=== PATIENT | female | born 1980 | race Caucasian/White ===

== ENCOUNTER 2017-06-22 21:40 | Emergency (ER) | payer SELFPAY ==
[~2017-06-22 21:40] MED LIST: BACT800T5 PO; CEPH500T PO; CLIN150 PO
[2017-06-22 21:46] VITALS: BP_SYST 231; BP_SYST 235; BP_DIAS 119; BP_DIAS 126; PULSE 97; RESP 16; TEMP 99.1
[2017-06-22 22:15] LABS: AUTOMATED NEUTROPHIL # 7.1 TH/MM3 (1.8-7.7); BASOPHIL % 0.4 % (0.0-2.0); EOSINOPHIL # 0.3 TH/MM3 (0-0.4); EOSINOPHIL % 2.4 % (0.0-4.0); HEMATOCRIT 40.7 % (35.0-46.0); HEMO FLAGS DIFF FINAL; LYMPH % 27.6 % (9.0-44.0); MEAN CORPUSCULAR HEMOGLOBIN 27.6 PG (27.0-34.0); MEAN CORPUSCULAR HGB CONC 33.7 % (32.0-36.0); MONO % 4.4 % (0.0-8.0); NEUT % 65.2 % (16.0-70.0); PLATELET COUNT 200 TH/MM3 (150-450); RED BLOOD COUNT 4.96 MIL/MM3 (4.00-5.30); RED CELL DISTRIBUTION WIDTH 14.4 % (11.6-17.2); WHITE BLOOD COUNT 10.9 TH/MM3 (4.0-11.0)
--- NOTE | 2017-06-22 22:55 | PD ---
HPI Chief Complaint: Hypertension Time Seen by Provider: 22:41 Travel History International Travel<30 days: No Contact w/Intl Traveler<30days: No Traveled to known affect area: No History of Present Illness HPI 37-year-old female that presents to the ED for evaluation of congestion. Patient has a history of congestion for the past 2 weeks she's been taking over- the-counter remedies with some relief. She is also been taking a medication that she requires a license to get which I believe is Sudafed. She states that his been helping. Per patient she came today because she continues to have the congestion and sinus pressure. She denies any cough. She states having runny nose. No fevers chills or sweats. No cough or chest pain. No shortness of breath. No headache. She was noted by triage nurse to have a elevated blood pressure in the 200s. Patient herself states that she is to be on blood pressure medications but has not taken any for about a year. Per patient she's not taking them because she no longer follows with the PCP. She denies any other medical symptoms. She does not know what she used to be on this for before. PFSH Past Medical History Cardiovascular Problems: Yes (HTN) Diminished Hearing: No Genitourinary: No Hypertension: Yes (SUPPOSED TO TAKE MEDS/ RAN OUT) Musculoskeletal: No Neurologic: No Reproductive: Yes (yeast infections) Respiratory: No : 1 Para: 1 Miscarriage: 0 : 0 Social History Alcohol Use: Yes (rare) Tobacco Use: Yes (1/2 PPD) Substance Use: Yes (marijuana at times) Allergies-Medications (Allergen,Severity, Reaction): Coded Allergies: No Known Allergies (Verified , 04/04/14) Reported Meds & Prescriptions Reported Meds & Active Scripts Active Cephalexin 500 Mg Tab 500 Mg PO Q6H 10 Days Cleocin (Clindamycin HCl) 150 Mg Cap 300 Mg PO Q6 10 Days Bactrim DS (Sulfamethoxazole-Trimethoprim DS) 1 Tab Tab 1 Tab PO BID 10 Days Review of Systems Except as stated in HPI: all other systems reviewed are Neg Physical Exam Narrative GENERAL: Well-nourished, well-developed patient in no apparent distress. SKIN: Warm and dry. HEAD: Atraumatic. Normocephalic. EYES: Pupils equal and round reactive to light and accommodation. No scleral icterus. No injection or drainage. ENT: No nasal bleeding or discharge. Mucous membranes pink and moist. TMs are clear with no sign of infection or perforation. No mastoid tenderness. Ear canals are intact bilaterally. No lymphadenopathy. Nostril mucosa is red and moist with clear mucus noted. No sinus tenderness to palpation noted. Tonsils are not enlarged or swollen. No ulvua Deviation. Tongue is midline. NECK: Trachea midline. No JVD. No meningeal signs noted CARDIOVASCULAR: Regular rate and rhythm. No murmurs, S3, S4. RESPIRATORY: No accessory muscle use. Clear to auscultation. Breath sounds equal bilaterally. GASTROINTESTINAL: Abdomen soft, non-tender, nondistended. Hepatic and splenic margins not palpable. MUSCULOSKELETAL: Extremities without clubbing, cyanosis, or edema. No obvious deformities. Full range of motion of the upper and lower extremities bilaterally. 2+ pulses bilaterally. NEUROLOGICAL: Awake and alert. No obvious cranial nerve deficits. Motor grossly within normal limits. Five out of 5 muscle strength in the arms and legs. Normal speech. PSYCHIATRIC: Appropriate mood and affect; insight and judgment normal. Data Data Last Documented VS Vital Signs Date Time Temp Pulse Resp B/P (MAP) Pulse Ox O2 Delivery O2 Flow Rate FiO2 06/22/17 21:46 99.1 97 16 235/119 (157) 231/126 (161) Orders Orders Complete Blood Count With Diff (06/22/17 21:56) Basic Metabolic Panel (Bmp) (06/22/17 21:56) Electrocardiogram (06/22/17 ) Hydralazine Inj (Apresoline Inj) (06/22/17 23:00) Ed Urine Pregnancytest Poc (06/22/17 22:47) Troponin I (06/22/17 22:49) Labs Laboratory Tests Test 06/22/17 22:05 White Blood Count 10.9 TH/MM3 Red Blood Count 4.96 MIL/MM3 Hemoglobin 13.7 GM/DL Hematocrit 40.7 % Mean Corpuscular Volume 82.0 FL Mean Corpuscular Hemoglobin 27.6 PG Mean Corpuscular Hemoglobin Concent 33.7 % Red Cell Distribution Width 14.4 % Platelet Count 200 TH/MM3 Mean Platelet Volume 8.4 FL Neutrophils (%) (Auto) 65.2 % Lymphocytes (%) (Auto) 27.6 % Monocytes (%) (Auto) 4.4 % Eosinophils (%) (Auto) 2.4 % Basophils (%) (Auto) 0.4 % Neutrophils # (Auto) 7.1 TH/MM3 Lymphocytes # (Auto) 3.0 TH/MM3 Monocytes # (Auto) 0.5 TH/MM3 Eosinophils # (Auto) 0.3 TH/MM3 Basophils # (Auto) 0.0 TH/MM3 CBC Comment DIFF FINAL Differential Comment MDM Medical Decision Making Medical Screen Exam Complete: Yes Emergency Medical Condition: Yes Medical Record Reviewed: Yes Differential Diagnosis Hypertension versus hypertensive urgency versus hypertensive emergency versus sinusitis versus congestion versus URI versus otitis media with otitis externa Narrative Course 37-year-old female that presents to the ED for evaluation of sinus congestion. Patient was properly examined and was found to have signs and symptoms which appear to be consistent with sinusitis. Patient has been taking decongestants which I believe is likely Sudafed. She does have a history of hypertension before and has a family history of hypertension and is to be medications but has not taken any for a year. She has no chest pain or any other symptoms or signs of acute organ injury. Her blood pressure was rechecked on the room and it was 260 systolic. Patient will be given IV hydralazine. EKG was ordered. Labs were ordered. Case will be signed out to my attending pending disposition. Oskar Sanchez Jun 22, 2017 22:55
[2017-06-22] MEDS ORDERED: hydrALAZINE HCL 20 MG/ML VIAL IV PUSH ONE (23:00)
[2017-06-22 23:11] LABS: BICARBONATE 29.5 MEQ/L (21.0-32.0); POTASSIUM 3.7 MEQ/L (3.5-5.1)
[2017-06-22 23:12] VITALS: BP 220/101; PULSE 90; RESP 20; O2SAT 99
[2017-06-22 23:51] VITALS: BP 187/90; PULSE 87; RESP 18; O2SAT 99
[2017-06-22] MEDS ORDERED: CIPR-9 PO (23:57)
[2017-06-22] MEDS ORDERED: AMLO5 PO (23:57)
[2017-06-22] MEDS ORDERED: GUAI600T11 PO (23:57)
--- NOTE | 2017-06-23 00:01 | PD ---
Physical Exam Narrative GENERAL: SKIN: Warm and dry. HEAD: Atraumatic. Normocephalic. L...MILD TTPERCUSSION TO FRONTAL/MAXILLARY SINUS EYES: Pupils equal and round. No scleral icterus. No injection or drainage. ENT: No nasal bleeding or discharge. Mucous membranes pink and moist. NECK: Trachea midline. No JVD. CARDIOVASCULAR: Regular rate and rhythm. RESPIRATORY: No accessory muscle use. Clear to auscultation. Breath sounds equal bilaterally. GASTROINTESTINAL: Abdomen soft, non-tender, nondistended. MUSCULOSKELETAL: Extremities without clubbing, cyanosis, or edema. No obvious deformities. NEUROLOGICAL: Awake and alert. No obvious cranial nerve deficits. Motor grossly within normal limits. Five out of 5 muscle strength in the arms and legs. Normal speech. PSYCHIATRIC: Appropriate mood and affect; insight and judgment normal. Data Data Last Documented VS Vital Signs Date Time Temp Pulse Resp B/P (MAP) Pulse Ox O2 Delivery O2 Flow Rate FiO2 06/22/17 23:51 87 18 187/90 (122) 99 Room Air 06/22/17 21:46 99.1 Orders Orders Complete Blood Count With Diff (06/22/17 21:56) Basic Metabolic Panel (Bmp) (06/22/17 21:56) Electrocardiogram (06/22/17 ) Hydralazine Inj (Apresoline Inj) (06/22/17 23:00) Ed Urine Pregnancytest Poc (06/22/17 22:47) Troponin I (06/22/17 22:49) Labs Laboratory Tests Test 06/22/17 22:05 06/22/17 23:00 White Blood Count 10.9 TH/MM3 Red Blood Count 4.96 MIL/MM3 Hemoglobin 13.7 GM/DL Hematocrit 40.7 % Mean Corpuscular Volume 82.0 FL Mean Corpuscular Hemoglobin 27.6 PG Mean Corpuscular Hemoglobin Concent 33.7 % Red Cell Distribution Width 14.4 % Platelet Count 200 TH/MM3 Mean Platelet Volume 8.4 FL Neutrophils (%) (Auto) 65.2 % Lymphocytes (%) (Auto) 27.6 % Monocytes (%) (Auto) 4.4 % Eosinophils (%) (Auto) 2.4 % Basophils (%) (Auto) 0.4 % Neutrophils # (Auto) 7.1 TH/MM3 Lymphocytes # (Auto) 3.0 TH/MM3 Monocytes # (Auto) 0.5 TH/MM3 Eosinophils # (Auto) 0.3 TH/MM3 Basophils # (Auto) 0.0 TH/MM3 CBC Comment DIFF FINAL Differential Comment Blood Urea Nitrogen 11 MG/DL Creatinine 0.95 MG/DL Random Glucose 113 MG/DL Calcium Level 8.6 MG/DL Sodium Level 140 MEQ/L Potassium Level 3.7 MEQ/L Chloride Level 104 MEQ/L Carbon Dioxide Level 29.5 MEQ/L Anion Gap 7 MEQ/L Estimat Glomerular Filtration Rate 67 ML/MIN Troponin I LESS THAN 0.02 NG/ML [facility] Medical Record Reviewed: Yes Supervised Visit with [facility]: No Narrative Course FROM SBP IN 260'S DOWN TO 180'S WITH HYDRALAZINE, WILL WRITE PATIENT FOR [facility] TO START AND TO FOLLOWUP WITH [facility]. NO E/O RENAL FAILURE. Diagnosis Primary Impression: SINUSITIS Additional Impression: ACCELERATED HYPERTENSION Referrals: [facility] FOR FURTHER MEDICAL CARE Additional Instruction: AVOID TAKING SUDAFED OR ANY OTHER DECONGESTANTS, BECAUSE THEY CAN INCREASE YOUR BLOOD PRESSURE EVEN MORE. Scripts Amlodipine (Norvasc) 5 Mg Tab 5 MG PO DAILY for Blood Pressure Management, #30 TAB 1 Refill Prov: Kevin Nur MD 06/22/17 Guaifenesin ER (Mucus Relief ER) 600 Mg Tab 600 MG PO BID Y for CHEST CONGESTION AND/OR COUGH for 7 Days, #14 TAB 0 Refills Prov: Kevin Nur MD 06/22/17 Ciprofloxacin (Cipro) 500 Mg Tab 500 MG PO BID for Infection for 10 Days, #20 TAB 0 Refills Prov: Kevin Nur MD 06/22/17 Disposition: 01 DISCHARGE HOME Condition: Stable Kevin Nur MD Jun 23, 2017 00:01
[2017-06-23] MEDS ORDERED: amLODIPine BESYLATE 5 MG TAB PO ONE (00:15)
[2017-06-23 00:59] VITALS: BP 199/91
--- NOTE | 2017-06-23 09:38 | EKG ---
Date Performed: 06/22/2017 Time Performed: 23:09:32 PTAGE: 37 years EKG: Sinus rhythm LEFT VENTRICULAR HYPERTROPHY AND ST-T CHANGE ABNORMAL ECG PREVIOUS TRACING : 12/29/2007 13.47 DOCTOR: Luis Valente Interpretating Date/Time 06/23/2017 09:34:11
== END 2017-06-23 01:28 | disposition home or self-care (01) ==
LOC: NEPC 21:40
DX: I10 Essential (primary) hypertension (principal); J01.90 Acute sinusitis, unspecified
CPT/HCPCS: 80048; 84484; 84703; 85025; 93005; 99284; J0360

== ENCOUNTER 2017-11-22 09:26 | Emergency (ER) | payer MEDICAID ==
[2017-11-22] VITALS (9 sets, daily range): BP systolic 136–255; BP diastolic 73–130; PULSE 80–84; RESP 16; TEMP 98.1; O2SAT 100
[~2017-11-22] VITALS: Ht 165.1 cm; Wt 80.0 kg
[~2017-11-22 09:26] MED LIST changes: +AMLO5 PO; -BACT800T5 PO; -CEPH500T PO; +CIPR-9 PO; -CLIN150 PO; +GUAI600T11 PO
[2017-11-22] MEDS ORDERED: LABETALOL HCL 100 MG/20 ML VIAL IV PUSH ONE ×2 (09:45→12:15)
--- NOTE | 2017-11-22 09:50 | PD ---
HPI Chief Complaint: Hypertension Time Seen by Provider: 09:33 Travel History International Travel<30 days: No Contact w/Intl Traveler<30days: No Traveled to known affect area: No History of Present Illness HPI Patient is a 37-year-old female presenting to the emergency department for evaluation of elevated blood pressure. Patient reports that she recently found out she was . Her last menstrual cycle was on October 25. She reports a history of hypertension but has not been on medication several months. This is her second , she has no history of preeclampsia. She reports a dull headache, her pain is a 3 out of 10. She denies any visual changes, photophobia. Patient denies any chest pain, shortness of breath, abdominal pain , vaginal bleeding, vaginal discharge. Previous was uneventful. [facility] Past Medical History Hypertension: Yes ?: LMP: 10/25/17 : 1 Para: 1 Miscarriage: 0 : 0 Past Surgical History Oral Surgery: Yes (TOOTH ABSCESS DRAINED ) Other Surgery: No Social History Alcohol Use: Yes (rare) Tobacco Use: Yes (1/2 PPD) Substance Use: Yes (marijuana at times) Allergies-Medications (Allergen,Severity, Reaction): Coded Allergies: No Known Allergies (Verified Allergy, Unknown, 11/22/17) Reported Meds & Prescriptions Reported Meds & Active Scripts Active No Active Prescriptions or Reported Medications Review of Systems Except as stated in HPI: all other systems reviewed are Neg HENT: Positive: Headaches, No: Lightheadedness Cardiovascular: No: Chest Pain or Discomfort Respiratory: No: Shortness of Breath Gastrointestinal: Positive: Nausea, No: Abdominal Pain Genitourinary: No: Dysuria, Discharge, Vaginal Bleeding Physical Exam Narrative GENERAL:, Well-nourished, alert female. Presenting in no acute distress. SKIN: Warm and dry. HEAD: Atraumatic. Normocephalic. EYES: Pupils equal and round. No scleral icterus. No injection or drainage. ENT: No nasal bleeding or discharge. Mucous membranes pink and moist. NECK: Trachea midline. No JVD. CARDIOVASCULAR: Regular rate and rhythm. RESPIRATORY: No accessory muscle use. Clear to auscultation. Breath sounds equal bilaterally. GASTROINTESTINAL: Abdomen soft, non-tender, nondistended. Hepatic and splenic margins not palpable. Positive bowel sounds, no rebound, no guarding. MUSCULOSKELETAL: Extremities without clubbing, cyanosis, or edema. No obvious deformities. NEUROLOGICAL: Awake and alert. No obvious cranial nerve deficits. Motor grossly within normal limits. Five out of 5 muscle strength in the arms and legs. Normal speech. PSYCHIATRIC: Appropriate mood and affect; insight and judgment normal. Data Data Last Documented VS Vital Signs Date Time Temp Pulse Resp B/P (MAP) Pulse Ox O2 Delivery O2 Flow Rate FiO2 11/22/17 13:53 80 136/73 (94) 11/22/17 10:23 Room Air 11/22/17 09:29 98.1 16 100 Orders Orders Labetalol Inj (Trandate Inj) (11/22/17 09:45) Ed Urine Pregnancytest Poc (11/22/17 09:43) Iv Access Insert/Monitor (11/22/17 09:43) Labetalol Inj (Trandate Inj) (11/22/17 12:15) Nifedipine (Procardia) (11/22/17 13:00) MDM Medical Decision Making Medical Screen Exam Complete: Yes Emergency Medical Condition: Yes Interpretation(s) Vital Signs Date Time Temp Pulse Resp B/P (MAP) Pulse Ox O2 Delivery O2 Flow Rate FiO2 11/22/17 13:53 80 136/73 (94) 11/22/17 13:03 214/101 (138) 11/22/17 12:43 213/97 (135) 11/22/17 12:16 200/95 (130) 11/22/17 11:04 172/90 (117) 11/22/17 10:51 180/94 (122) 11/22/17 10:35 255/130 (171) 11/22/17 10:23 Room Air 11/22/17 09:29 98.1 84 16 231/112 (151) 100 Vital Signs Date Time Temp Pulse Resp B/P (MAP) Pulse Ox O2 Delivery O2 Flow Rate FiO2 11/22/17 09:29 98.1 84 16 231/112 (151) 100 Differential Diagnosis Hypertension versus hypertensive urgency versus other Narrative Course Patient is a 37-year-old female presented to the emergency room for evaluation of hypertension. Patient is approximately 6-8 weeks by her own report. Urine is positive in the emergency department. Discussed with my attending physician. Patient will be given labetalol 10 mg IV 1 dose. Will reassess. Blood pressure trended down to 170s systolic. Patient will be given second dose of labetalol. Blood pressure remained elevated after second dose of labetalol. Patient was given Procardia 20 mg orally 1 dose. Blood pressure was reassessed, systolic blood pressure was in the 130s. Patient will be discharged home on Procardia. She is advised to follow-up/establish care with an care worker for routine care. She was advised to take the medications at the same time every day to to avoid rebound hypertension. She was encouraged to avoid skipping doses. She was advised to return immediately to the emergency department for any new worsening symptoms. Diagnosis Primary Impression: Hypertension Qualified Codes: I10 - Essential (primary) hypertension Additional Impression: Qualified Codes: Z34.90 - Encounter for supervision of normal , unspecified, unspecified trimester Referrals: Rafaela Serna MD 2 days [employer] 3 days Patient Instructions: General Instructions, Hypertension (ED), Hypertension During (ED) Additional Instructions: Establish care with an care worker for routine care Follow-up with your primary doctor or at the [facility] Take medications as directed, do not skip doses Return to emergency department for any new or worsening symptoms Med/Other Pt SpecificInfo: Prescription(s) given Scripts Vit-Iron Carbonyl ( Plus Iron 29-1 mg) 29 Mg Iron-1 Mg Tab 1 TAB PO DAILY for Nutritional Supplement, #30 TAB 0 Refills Prov: Elise Young 11/22/17 Nifedipine ER 24 HR (Procardia XL) 30 Mg Tab 30 MG PO DAILY, #30 TAB 0 Refills Prov: Elise Young 11/22/17 Disposition: 01 DISCHARGE HOME Condition: Stable Elise Young Nov 22, 2017 09:50
[2017-11-22] MEDS ORDERED: NIFEdipine 20 MG CAP PO ONE (13:00)
[2017-11-22] MEDS ORDERED: PREN29TA PO (14:06)
[2017-11-22] MEDS ORDERED: NIFE1TAB85 PO (14:06)
== END 2017-11-22 14:43 | disposition home or self-care (01) ==
LOC: NEPD 09:26
DX: O10.911 Unspecified pre-existing hypertension complicating pregnancy, first trimester (principal); O99.331 Smoking (tobacco) complicating pregnancy, first trimester; F17.200 Nicotine dependence, unspecified, uncomplicated; Z3A.01 Less than 8 weeks gestation of pregnancy
CPT/HCPCS: 84703; 96374; 96376